=== PATIENT | female | born 1970 | race Caucasian/White ===

== ENCOUNTER → 2021-04-14 07:25 | Outpatient (CLI) | payer OTHER, BC, SELFPAY ==
--- NOTE | ~2021-04-14 | MM_ITS ---
EXAMINATION: MM screening ariel BI w dariel HISTORY: Screening TECHNIQUE: Craniocaudal and mediolateral oblique 3-D tomosynthesis images were obtained and synthetic 2-D images were generated. CAD analysis was submitted and interpreted. COMPARISON: Comparison to multiple prior studies sequentially, with oldest reviewed study dated 03/14. BREAST PARENCHYMAL COMPOSITION: The breasts are extremely dense, which lowers the sensitivity of mamm ography. FINDINGS: There are developing clustered calcifications in the upper outer quadrant of the left breas t. The right breast is stable without evidence for malignancy. IMPRESSION: 1. Developing right breast calcifications. 2. Magnification views are recommended. BI-RADS Category 0: Incomplete: Needs additional imaging evaluation. Reviewed, dictated and finalized at location A.
== END ==
PROVIDERS: PCP Family Medicine
DX: Z12.31 Encounter for screening mammogram for malignant neoplasm of breast (principal); R92.8 Other abnormal and inconclusive findings on diagnostic imaging of breast
CPT/HCPCS: 77063; 77067

== ENCOUNTER → 2021-05-16 07:45 | Outpatient (CLI) | payer OTHER, BC, SELFPAY ==
--- NOTE | ~2021-05-16 | MMUS_ITS ---
EXAMINATION: MM diagnostic mammo unilat LT, US breast LT limited HISTORY: Developing right breast calcifications reported in upper outer quadrant left breast on 2020 screening mammogram TECHNIQUE: Digital ML view of left breast. Magnification ML, MLO and craniocaudal views.. CAD analysi s was submitted and interpreted. High resolution upper outer quadrant left breast ultrasound was perf ormed. COMPARISON: 04/14/2021 bilateral screening mammogram FINDINGS: MAMMOGRAPHIC FINDINGS: Multiple benign-appearing microcalcifications are noted. No malignant features are identified. No jose picious mass or architectural distortion is evident. Upper outer quadrant left breast ultrasound exam ination was performed. ULTRASOUND: 1:00 3 cm from nipple: Parallel circumscribed 6.7 x 2.3 x 4.9 mm mixed hypoechoic and hyperechoic les ion with some internal vascularity, without suspicious shadowing. This is most likely benign. Six-mon left breast ultrasound examination follow-up is recommended. 2:00 3 cm from nipple: Parallel circumscribed hypoechoic 4.4 x 2.7 x 4 mm lesion without shadowing, c onsistent with benign process 2:00 1 cm from nipple: 4.4 mm sonolucency with through transmission posterior enhancement consistent with simple cyst 3:00 2 cm from nipple: 2 x 1.4 x 2.8 mm cyst 3:00 1 cm from nipple: Parallel circumscribed hypoechoic 3.3 x 8.3 x 5.1 mm lesion with through trans mission and posterior enhancement, benign in appearance Subareolar: 4.3 x 4.7 mm largely sonolucent lesion with through transmission, likely a cyst IMPRESSION: 1. Probable benign finding at 1:00 3 cm from nipple 2. Six-month t left breast ultrasound follow-up is recommended BI-RADS category 3, probably benign findings. Reviewed, dictated and finalized at location A. 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 Probable benign finding at 1:00 3 cm from nipple 2. Six-month t left breast ultrasound follow-up is recommended BI-RADS category 3, probably benign findings.
== END ==
DX: R92.8 Other abnormal and inconclusive findings on diagnostic imaging of breast (principal)
CPT/HCPCS: 76642; 77065

== ENCOUNTER → 2021-11-12 07:41 | Outpatient (CLI) | payer OTHER, BC, SELFPAY ==
--- NOTE | ~2021-11-12 | US_ITS ---
US breast LT limited DATE: 11/12/2021 08:25 INDICATION: Six-month follow-up of probably benign finding at 1:00 3 cm from nipple TECHNIQUE: Real-time imaging, color flow imaging targeted at 1:00 3 cm from nipple COMPARISON: 05/16/2021 diagnostic left mammogram and limited left breast ultrasound FINDINGS: There is a stable circumscribed parallel approximately 2.5 x 4.8 x 7.7 mm lesion without sh adowing, with fatty density and minimal vascularity at the hilus, most consistent with benign lymph n ode. IMPRESSION: BI-RADS Category 2: Benign Recommendations: Routine mammographic screening Reviewed, dictated and finalized at Location A. Reviewed, dictated and finalized at location A.
== END ==
PROVIDERS: PCP Family Medicine
DX: R92.1 Mammographic calcification found on diagnostic imaging of breast (principal)
CPT/HCPCS: 76642

== ENCOUNTER → 2022-09-04 10:14 | Outpatient (CLI) | payer OTHER, BC, SELFPAY ==
--- NOTE | ~2022-09-04 | MM_ITS ---
EXAMINATION: MM screening ariel BI w dariel HISTORY: Screening TECHNIQUE: Craniocaudal and mediolateral oblique 3-D tomosynthesis images were obtained and synthetic 2-D images were generated. CAD analysis was submitted and interpreted. COMPARISON: Comparison to multiple prior studies sequentially, with oldest reviewed study dated 03/14. BREAST PARENCHYMAL COMPOSITION: The breasts are heterogeneously dense, which may obscure small masses FINDINGS: There are asymmetries medial aspect of the left breast posteriorly on CC view. The right br east is stable without evidence for malignancy. IMPRESSION: 1. Left breast asymmetries. 2. Additional mammographic views and possible breast ultrasound are recommended. BI-RADS Category 0: Incomplete: Needs additional imaging evaluation. Reviewed, dictated and finalized at location A. IMPRESSION: 1. Left breast asymmetries. 2. Additional mammographic views and possible breast ultrasound are recommended . BI-RADS Category 0: Incomplete: Needs additional imaging evaluation.
== END ==
PROVIDERS: PCP Family Medicine
DX: Z12.31 Encounter for screening mammogram for malignant neoplasm of breast (principal); R92.8 Other abnormal and inconclusive findings on diagnostic imaging of breast
CPT/HCPCS: 77063; 77067

== ENCOUNTER 2022-10-02 08:05 | Outpatient (CLI) | payer OTHER, BC, SELFPAY ==
--- NOTE | ~2022-10-02 | MMUS_ITS ---
EXAMINATION: MM diagnostic ariel LT w dariel, US breast LT limited HISTORY: Left breast asymmetries on screening mammogram TECHNIQUE: Additional 3-D tomosynthesis images of the left breast were performed and synthetic 2-D im ages were generated. CAD analysis was submitted and interpreted. High resolution limited left breast ultrasound was performed. COMPARISON: 09/04/2022, 05/16/2021, 04/14/2021, 07/21/2019 FINDINGS: MAMMOGRAPHIC FINDINGS: There is a return to baseline fibroglandular appearance with spot compression of the left breast in t he area questioned on screening mammogram. ULTRASOUND: There is no evidence of focal abnormal solid or cystic mass in the vicinity of the mammographic findi ng in question. IMPRESSION: 1. No mammographic or sonographic evidence of malignancy. 2. Recommend routine screening mammography in one year. BI-RADS Category 1: Negative Reviewed, dictated and finalized at location A. IMPRESSION: 1. No mammographic or sonographic evidence of malignancy. 2. Recommend routine screening mammography in one year. BI-RADS Category 1: Negative
== END 2022-10-02 08:06 ==
PROVIDERS: PCP Family Medicine
DX: R92.8 Other abnormal and inconclusive findings on diagnostic imaging of breast (principal)
CPT/HCPCS: 76642; 77061; 77065; G0279

== ENCOUNTER 2024-06-09 14:54 | Outpatient (CLI) | payer BC, SELFPAY ==
--- NOTE | ~2024-06-09 | MM_ITS ---
EXAMINATION: MM screening ariel BI w dariel HISTORY: Screening TECHNIQUE: Craniocaudal and mediolateral oblique 3-D tomosynthesis images were obtained and synthetic 2-D images were generated. CAD analysis was submitted and interpreted. COMPARISON: 09/04/2022 and dating back to 07/21/2019 BREAST PARENCHYMAL COMPOSITION: The breasts are extremely dense, which lowers the sensitivity of mamm ography. FINDINGS: Punctate calcifications are detected bilaterally, stable and benign in appearance. Stable parenchymal pattern without suspicious microcalcifications, architectural distortion, discrete masses or significant asymmetry. IMPRESSION: 1. No mammographic evidence of malignancy. 2. Recommend routine screening mammography in one year. BI-RADS Category 2: Benign finding(s). Reviewed, dictated and finalized at location A. 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
== END 2024-06-09 14:55 | disposition home or self-care (01) ==
PROVIDERS: PCP Family Medicine
DX: Z12.31 Encounter for screening mammogram for malignant neoplasm of breast (principal)
CPT/HCPCS: 77063; 77067

== ENCOUNTER 2025-06-11 14:44 | Outpatient (CLI) | payer BC, SELFPAY ==
--- NOTE | ~2025-06-11 | MM_ITS ---
EXAMINATION: MM screening ariel BI w dariel HISTORY: Screening. TECHNIQUE: Craniocaudal and mediolateral oblique 3-D tomosynthesis images were obtained and synthetic 2-D images were generated. CAD analysis was submitted and interpreted. COMPARISON: 2023, 2022, and 2021. BREAST PARENCHYMAL COMPOSITION: Dense: The breasts are heterogeneously dense, which may obscure small masses. FINDINGS: No suspicious masses are seen. There are no suspicious calcifications. No unexplained architectural distortion is seen. There are no skin or nipple abnormalities identified. There is no adenopathy seen on the images submitted. IMPRESSION: No mammographic evidence to suggest malignancy is seen. The patient may return to screening mammography as per ACR guidelines. BI-RADS 1 - Negative. Reviewed, dictated and finalized at location A. 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
== END 2025-06-11 14:45 | disposition home or self-care (01) ==
LOC: MICIMG 14:45
PROVIDERS: PCP Advanced Practice Midwife; Visit Provider Family Medicine
DX: Z12.31 Encounter for screening mammogram for malignant neoplasm of breast (principal)
CPT/HCPCS: 77063; 77067